=== PATIENT | male | born 1950 | race Caucasian/White ===

== ENCOUNTER 2017-10-22 09:41 | Inpatient (IN) | payer MEDICARE, SELFPAY ==
[2017-10-22] VITALS (40 sets, daily range): BP systolic 68–141; BP diastolic 51–115; PULSE 66–138; RESP 10–20; TEMP 36.8–37.1; O2SAT 94–98; BMI 27.6; BMI 26.8
--- NOTE | 2017-10-22 09:43 | NURSING ---
NO OLD EKGS
[2017-10-22] MEDS: 0.9% Normal Saline 1,000 ML 1000 ML IV (10:13)
[2017-10-22 10:14] LABS: Absolute Lymphocyte Count 0.92 X10^3/ul (0.83-4.51); Absolute Neutrophil Count 5.4 X10^3/uL (2.0-7.7); Basophil# 0.01 X10^3/uL; Basophil% 0.1 % (0-1); Eosinophil# 0.04 X10^3/uL; Eosinophils% 0.6 % (0-5); Hematocrit 44.4 % (40-54); Hemoglobin 14.7 g/dl (13.0-16.5); Lymphocyte # 0.92 X10^3/ul (4.0); Lymphocyte % 12.8 % (19-41); Mean Corp Hgb Conc 33.1 g/gl (32-36); Mean Corpuscular Hgb 32.5 pg (27.0-32.0); Mean Corpuscular Volume 98.2 fL (80-94); Mean Platelet Vol. 9.1 fl (6.2-12.0); Monocyte# 0.76 X10^3/uL; Monocyte% 10.6 % (0-10); Neutrophil # 5.41 X10^3/uL (2.7-7.7); Neutrophil % 75.6 % (47-70); POSITIVE COUNT NO; POSITIVE DIFFERENTIAL NO; POSITIVE MORPHOLOGY NO; Platelet Count 287 K/mm3 (150-450); RBC Distribution Width CV 12.1 % (11.6-14.6); RBC Distribution Width SD 42.9 fl (35.1-43.9); Red Blood Count 4.52 M/mm3 (4.6-6.2); White Blood Count 7.2 K/mm3 (4.4-11.0)
[2017-10-22] MEDS: dilTIAZem 25 MG/5 ML Vial IV BOLUS (10:14)
[2017-10-22] MEDS: Ondansetron 4 MG/2 ML Vial IV (10:14)
[2017-10-22] MEDS: Morphine 4 MG/ML Syringe 6 MG IV (10:14)
[2017-10-22 10:32] LABS: AST(SGOT) 22 U/L (15-37); Alanine Aminotransfer ALT/SGPT 23 U/L (16-61); Albumin, Serum 3.5 g/dL (3.2-5.0); Alkaline Phosphatase 116 U/L (45-117); Anion Gap 11 (5-15); BUN 12 mg/dL (7-18); BUN/Creat Ratio 13.2 RATIO (10-20); Bilirubin, Direct 0.07 mg/dL (0.00-0.30); Calcium,Total 9.2 mg/dL (8.5-10.1); Chloride 97 mmol/L (98-107); Creatinine, Serum 0.91 mg/dL (0.70-1.30); EST Glomerular Filtration Rate 88 mL/min (>60); Est Glom Filt Rate - Afr Amer 106 mL/min (>60); Estimated Creatinine Clearance 82.75 ml/min; Globulin 4.3 g/dL (2.2-4.2); Glucose 125 mg/dL (74-106); Lipase 38 U/L (73-393); Potassium 4.3 mmol/L (3.5-5.1); Protein, Total 7.8 g/dL (6.4-8.2); Sodium Level 137 mmol/L (136-145)
[2017-10-22 10:46] LABS: Mucous, Urine 0 SEEN /hpf (<or=2+); Squamous Epithelial Cells - UA 0 SEEN /hpf (0-5)
[2017-10-22 10:48] LABS: Color, Urine Yellow (Yellow); Glucose, Dipstick Normal (Normal); Ketone-Dipstick Negative (Negative); Leukocyte Esterase-Dipstick 25 /ul (Negative); Nitrite-Dipstick Negative (Negative); Occult Blood-Urine Negative /ul (Negative); Protein-Dipstick Negative (Negative); Urine Bilirubin Dipstick Negative (Negative); Urine Clarity Clear (Clear); Urine Urobilinogen Normal (Normal)
[2017-10-22 11:03] LABS: Red Blood Cells-Urine 0-5 SEEN /hpf (0-5); White Blood Cells 0-5 SEEN /hpf (0-5)
[2017-10-22 11:04] LABS: Bacteria RARE /hpf (None Seen)
[2017-10-22] MEDS: dilTIAZem 25 MG/5 ML Vial 20 MG IV BOLUS (12:01)
--- NOTE | 2017-10-22 12:04 | ED.VISSUMM ---
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 Denies prior abdominal surgery. He has had a prior lumbar fusion. He states he has had this abdominal pain in the periumbilical region. It was gradual in onset. He has had nausea but denies vomiting, diarrhea, fever, melena. No weight loss. No dysuria. Also states is an accelerated heart rate which she is unsure when it started. He denies chest pain or dyspnea. Physical Examination: Middle-aged male. Vital signs stable other than tachycardia 137. Pulse ox 94% on room air. Afebrile. H EENT exam unremarkable dry mucous members. Neck nontender no lymphadenopathy. Lungs clear to auscultation bilaterally. Heart tachycardic rate about 137. Abdomen is soft he has periumbilical tenderness. No rebound or guarding. Nondistended no peritoneal signs. No hernias or masses. No pulsatile mass. No specific right lower quadrant tenderness. Normal bowel sounds. Moving all 4 extremities. Neurovascularly intact. Calves nontender without edema or cords. Neurologically is awake and alert without focal motor deficits. Test Results: Chest x-ray showed chronic changes no acute process read both by myself and the radiologist. CT abdomen pelvis with IV contrast showed gallbladders and possibly small stones. Bilateral hydronephrosis but no obvious stones or obstruction seen in the left renal cyst. Read by the radiologist and reviewed by me. EKG shows atrial flutter heart rate of 134. CBC normal. White count 7. Hemoglobin 14. Chemistries normal. Gap 11. Creatinine 0.9. Liver enzymes normal. Lipase normal. UA normal. No signs of infection. Troponin normal. Emergency Department Course and Treatment: Patient treated with IV morphine and Zofran for his abdominal pain. A liter normal saline. And IV Cardizem ?2 for his atrial flutter with rapid ventricular rate. Treatment Plan: Multiple repeat exams is doing well. I have gone over all the test results with he and her male friend at bedside. Patient will be given a second dose of Cardizem. I very spoken to the hospitalist about admission. Disposition: Admit Impression: Recurrent atrial flutter with rapid ventricular rate Abdominal pain of uncertain etiology. Anticoagulated on Eliquis. This note was generated with [employer] dictation software. It may contain incorrect words, spelling, and punctuation that were not noted in review of the chart prior to signing ED Disposition - Plan for ED Patient: Chief Complaint: Abd Pain Referrals: Sayra Peterson MD [Primary Care Provider] -
--- NOTE | 2017-10-22 12:17 | PCM.HP.STD ---
Problem List (1) Palpitations Status: Acute (2) Abdominal pain Status: Acute History of Present Illness Date of Admission: 10/22/17 Chief Complaint: palpitations, abdominal pain The patient is a 67 year old M with a history of atrial fibrillation, hyperlipidemia and schizophrenia. He was admitted from his wrist home with a complaint of abdominal pain of one days duration and elevated heart rate also 1 days duration. Comments patient usually has generalized abdominal pain and is being followed up by GI doctor and was started on Zocor for it. However 1 day ago pain got worse. It was generalized, with no aggravating or relieving factors, cramping in nature, with associated nausea. He rated pain at about 8 out of 10. He denied any bloody emesis or bloody stool and denied abdominal pain being worsened by eating. His heart rate was checked in the longterm with a complaint of palpitations that he was noted to have elevated heart rate. Was never brought to the emergency room. He claims compliance with all his medications including his anticoagulation as he takes Eliquis and also his metoprolol to control his heart rate. In the ED, heart rate was in the 130s-140s, blood pressure was 117/74 and temperature was 98.2. Respiratory rate was 14 and he was saturating at 98% on 2 L of oxygen. CBC was unremarkable and CMP was also unremarkable. CT of the abdomen and pelvis with contrast showed increased linear markings of the lung base with areas of confluence worse on the right side and a 1.1 cm pleural-based nodular density in the right lower lobe which could be related to scarring and calcified granuloma in the anterior aspect of the right lower lobe. Decreased attenuation of liver consistent with steatosis mildly dilated central intrahepatic biliary ducts. Questionable sludge or tiny gallstones along the dependent portion of the gallbladder and multiple benign calcified melanomas of the spleen. CT also showed mild bilateral hydronephrosis and hydroureter without evidence of ureteral obstruction and left renal cyst. Her troponin was negative. He has been admitted to be managed for A. fib with RVR and abdominal pain. [] Past Medical History Allergies No Known Allergies Allergy (Verified 10/22/17 09:45) Home Medications: Ambulatory Orders Medication Instructions Recorded ALPRAZolam [Xanax] 0.25 mg PO QHS 10/22/17 Apixaban [Eliquis] 5 mg PO BID 10/22/17 Cholecalciferol (Vitamin D3) 1,000 unit PO DAILY 10/22/17 [Vitamin D3] Dicyclomine HCl 10 mg PO 4X/DAY 10/22/17 Duloxetine HCl 30 mg PO DAILY 10/22/17 Esomeprazole Magnesium 40 mg PO BID 10/22/17 Fentanyl 1 each TD QODAY MDD 75 10/22/17 Gabapentin [Neurontin] 300 mg PO BIDCM 10/22/17 Metoprolol Succinate 25 mg PO DAILY 10/22/17 Polyethylene Glycol 3350 [Miralax] 17 gm PO BID 10/22/17 Pravastatin [Pravachol] 40 mg PO DAILY 10/22/17 Risperidone [Risperdal] 0.25 mg PO BID 10/22/17 Sucralfate 1 gm PO BID 10/22/17 Surgical History: no surgical history Psychiatric History: Schizophrenia Lives: Prison Smoking Status: Never smoker Alcohol: None Drugs: None - *Family History Maternal History Items: Heart Disease Review of Systems Constitutional: Denies: Chills, Fever, Weight Change Eyes: Denies: Blurred vision HEENT: Denies: Head Aches, Sinus Congestion, Sinus Drainage Cardiovascular: Reports: Chest Pain - mild retrosternal chest pain,with no aggravating or relieving factors.. Denies: Light Headedness, Orthopnea, Palpitations Respiratory: Denies: Cough, Shortness of Breath, Shortness of breath at rest, Shortness of breath upon exertion, Sputum production Gastrointestinal: Reports: Abdominal Pain, Nausea. Denies: Constipation, Diarrhea, Dyspepsia, Hematemesis, Hematochezia, Melena, Vomiting Genitourinary: Denies: Dysuria Musculoskeletal: Denies: Joint Pain, Joint Tenderness Skin: Denies: Rash, Wounds Neurological: Denies: Numbness, Tingling, Focal weakness Psychiatric: Denies: Anxiety, Depression, Homicidal Ideations, Suicidal Ideations Hematologic/ Lymphatic: Denies: Easy Bruising, Easy Bleeding VTE Information - Inpt Only VTE Present on Admission: No VTE Mechan Device Prophylaxis: None VTE Pharm Prophylaxis ordered?: Yes Patient Problems: Active and Suspected Problems Palpitations (Acute) Abdominal pain (Acute) Atrial flutter (Acute) - Physical Exam General: Alert, Oriented x3, Cooperative, No apparent distress HEENT: Atraumatic, PERRLA, EOMI, Normocephalic Oral: Dry Mucosa Neck: Supple, No JVD, Negative Carotid Bruits Lungs: Clear to auscultation, Normal air movement, No rhonchi, No wheeze, No rales Cardiovascular: - - irregularly irregular heart rate, tachycardic Abdomen: Bowel Sounds Present, Soft, - - generalised tenderness, mainly in periumbilical region. no guarding or rebound tenderness Extremities: No clubbing, No cyanosis, No edema, Capillary Refill Less than 3 Seconds Skin: No rashes, No breakdown Musculoskeletal: No Tenderness to Palpation of Joints or Extremities Lymphatic: No Cervical, Supraclavicular, or Inguinal Adenopathy Neurological: Cranial nerves II-XII grossly intact, Motor Exam 5/5 strength throughout Psych/Mental Status: Normal Affect, Appropriate, Alert and oriented to time, place, person, mood and affect Vital Signs Temp Pulse Resp BP Pulse Ox 98.2 F 130 H 14 141/103 H 94 10/22/17 09:42 10/22/17 12:00 10/22/17 12:00 10/22/17 12:00 10/22/17 12:00 Oxygen Delivery Method Room Air Weight: 198 lb Body Mass Index (BMI) 27.6 Laboratory Tests Past 24 Hrs 10/22/17 10/22/17 10/22/17 10:06 10:06 10:35 WBC 7.2 RBC 4.52 L Hgb 14.7 Hct 44.4 MCV 98.2 H MCH 32.5 H MCHC 33.1 RDW 12.1 RDW Differential 42.9 Plt Count 287 MPV 9.1 Immature Gran % (Auto) 0.300 Neut % (Auto) 75.6 H Lymph % (Auto) 12.8 L Emery % (Auto) 10.6 H Eos % (Auto) 0.6 Baso % (Auto) 0.1 Absolute Neuts (auto) 5.4 Absolute Lymphs (auto) 0.92 Total Counted Not Reportable Sodium 137 Potassium 4.3 Chloride 97 L Carbon Dioxide 29.0 Anion Gap 11 BUN 12 Creatinine 0.91 Estim Creat Clear Calc 82.75 Est GFR (MDRD) Af Amer 106 Est GFR (MDRD) Non-Af 88 BUN/Creatinine Ratio 13.2 Glucose 125 H Calcium 9.2 Total Bilirubin 0.20 Direct Bilirubin 0.07 AST 22 ALT 23 Alkaline Phosphatase 116 Troponin I < 0.015 Total Protein 7.8 Albumin 3.5 Globulin 4.3 H Lipase 38 L Urine Color Yellow Urine Clarity Clear Urine pH 7.0 Ur Specific [place] 1.010 Urine Protein Negative Urine Glucose (UA) Normal Urine Ketones Negative Urine Occult Blood Negative Urine Nitrite Negative Urine Bilirubin Negative Urine Urobilinogen Normal Ur Leukocyte Esterase 25 H Urine RBC 0-5 SEEN Urine WBC 0-5 SEEN Ur Squamous Epith Cells 0 SEEN Urine Bacteria RARE Urine Mucus 0 SEEN Diagnostic Data Abdomen/Pelvis CT 10/22/17 09:56 IMPRESSION: Findings suggestive of atelectasis and/or scarring at the lung bases. Follow-up is recommended. Mild degree of the dilated intrahepatic biliary ducts and possible sludge or tiny gallstones in the gallbladder lumen. Mild bilateral hydronephrosis and hydroureter without evidence of ureteral obstruction. Left renal cyst. Electronically Signed: Asher Denton MD at 11:27 EDT Tel [phone], Service support , Chest X-Ray 10/22/17 10:15 IMPRESSION: Mild increased markings in the peripheral aspect of the right upper lobe and left lower lobe suggestive of linear atelectasis and/or scarring. Electronically Signed: Asher Denton MD at 10:20 EDT Tel [phone], Service support , Assessment/Plan All Active Problems Palpitations (Acute) Abdominal pain (Acute) Atrial flutter (Acute) 67-year-old male with a history of atrial fibrillation presenting with a one-day history of worsening abdominal pain and elevated heart rate. 1. Afib with RVR Heart rate has been in the 120s and up to 140s. Received 2 doses of IV Cardizem in the ED with a heart rate persists in the 120s-130s. claims compliance with this anticoagulants and metoprolol. Will admit to PCU with telemetry EKG showed atrial flutter with RVR Start IV Cardizem drip. Hold Eliquis and start IV heparin drip. he received his eliquis dose this morning, so he is adequately anticoagulated for now. Hold metoprolol as patient of Cardizem drip. Get 2D echo Cardiology consult. 2. Generalized abdominal pain due to possible mesenteric ischemia States he has been followed up by a GI doctor in [facility]. Was recently put on sulcrafate but abdominal pain has persisted. Abdominal pain worsened 1 day ago. On examination abdomen is soft patient complains of severe generalized abdominal tenderness. CT abdomen showed mildly dilated intrahepatic biliary ducts and possible sludge of tiny gallstones in the gallbladder lumen and bilateral mild hydronephrosis and hydroureter with no evidence of ureteral obstruction and left renal cyst. will get urgent lactic acid to assess for possible ischemia- lactic acid came back elevated at 3.6. Will give IVF and trend lactic acid. If it trends upwards, will get general surgery consult. gallbladder USG obtained to assess for cholecystitis general surgery consult placed with Dr Paredes. 3. Lactic acidosis: lactic acid is 3.6. May be due to mesenteric ischemia or some other intra-abdominal pathology. Will start IVF NS @ 100cc/hr and monitor. 4. Hyperlipidemia: on statin, will continue 5. Schizophrenia: continue risperdal 6. DVT prophylaxis: heparin drip 7. GI prophylaxis: PPI Code status: DNRCCA Brother is his healthcare power of assistant attorney general. Patient counseled extensively about different types of CODE STATUS. Patient counseled about differences between full code, DNR CCA and DNR CCA. Patient elected to be full code after discussion in the ED. However, there is documentation from [facility] that he is DNRCCA. I again explained to patient the differences between full code and DNRCC. Patient now prefers to go with DNRCCA as that is what is on his record. Says he will discuss with his brother about any change they want to make, as he admits he is quite confused about it all. Total xsev-dl-whps time 20 minutes. This note was generated with [employer] software. It may contain incorrect words, spelling, and punctuation that were not noted in checking the note before signing. Code Visit Inpatient E&M: 67417 Init Hosp L3 Procedures: 64534 Advncd Care Plan 30 Min
--- NOTE | 2017-10-22 12:28 | CM.ED ---
DAVIDE Initial Assessment: Patient states he is a resident at [facility] and would like to return there upon discharge. Social work and case management will continue to follow for effective discharge planning.
--- NOTE | 2017-10-22 13:04 | NURSING ---
105 MANJEET MENDEZ WITH RVR
--- NOTE | 2017-10-22 14:21 | CASEMGMT ---
Patient is from [facility] residential. SW will communicate with [facility] regarding patient's admission and when he is ready for d/c. Patient's brother, Som is his POA per snf paperwork ([phone]). Also included in the snf paperwork is an order for DNRCC. Rafaela JJ MSW
[2017-10-22] MEDS: 0.9% NaCl Peripheral Flush Adult/Peds IV ×3 (15:02→21:26)
[2017-10-22] MEDS: dilTIAZem 25 MG/5 ML Vial 10 MG IV BOLUS (15:06)
[2017-10-22] MEDS: Dicyclomine 10 MG Capsule PO ×2 (15:10→21:37)
[2017-10-22] MEDS: Gabapentin 300 MG Capsule PO (15:12)
--- NOTE | 2017-10-22 15:43 | PCM.CONS.C ---
Problem List (1) Atrial flutter Status: Acute (2) Palpitations Status: Acute (3) Abdominal pain Status: Acute Reason for Consult Date of Consultation: 10/22/17 Reason for Consultation: Atrial flutter with RVR, abdominal pain, positive gallstones, chest pressure History of Present Illness: The patient is a 67 year old M, with a history of schizophrenia, atrial fibrillation on chronic Eliquis therapy, lives in assisted living at [facility] here locally for the past 2 years. Patient was diagnosed with atrial flutter about 1 year ago and had DC cardioversion and [place] which was initially successful. No further cardioversion was performed. The patient walks with a walker but has limited mobility. He is a nondiabetic, has had no previous CVA and is a non-smoker. He denies any coronary disease or stress test in the past. He thinks he may have had a catheterization about 3 years ago but he does not recall what the results were. The patient was residing in his normal state at the [facility] when he developed chest pressure several times over the last day or so. He describes this is a strong pain with associated lightheadedness and dizziness over the last day. Patient presented to [facility] ER where initially was found to be tachycardic and EKG detected atrial flutter with rapid ventricular response, no acute changes. He underwent a CT scan in the ER which demonstrated atelectasis and/or scarring at the lung bases, mild degree of the dilated intrahepatic biliary ducts and possible sludge or tiny gallstones in the gallbladder lumen. Mild bilateral hydronephrosis and hydroureter without evidence of ureteral obstruction. Left renal cyst. Patient was placed on a Cardizem drip and admitted to the PCU. He denies any chest pain or anginal symptoms. His heart rate is not quite controlled and is beating in the 120s. He does report compliance with his medications including his metoprolol and Eliquis. Echocardiogram is pending. First troponin is negative. Patient is currently laying in bed, no acute distress, but does have abdominal guarding and tenderness in the right upper quadrant. He also has his knees bent, to avoid antagonizing his abdominal pain. [] Past Medical History Allergies/Adverse Reactions: Allergies No Known Allergies Allergy (Verified 10/22/17 09:45) Home Medications: Ambulatory Orders Medication Instructions Recorded ALPRAZolam [Xanax] 0.25 mg PO QHS 10/22/17 Apixaban [Eliquis] 5 mg PO BID 10/22/17 Cholecalciferol (Vitamin D3) 1,000 unit PO DAILY 10/22/17 [Vitamin D3] Dicyclomine HCl 10 mg PO 4X/DAY 10/22/17 Duloxetine HCl 30 mg PO DAILY 10/22/17 Esomeprazole Magnesium 40 mg PO BID 10/22/17 Fentanyl 1 each TD QODAY MDD 75 10/22/17 Gabapentin [Neurontin] 300 mg PO BIDCM 10/22/17 Metoprolol Succinate 25 mg PO DAILY 10/22/17 Polyethylene Glycol 3350 [Miralax] 17 gm PO BID 10/22/17 Pravastatin [Pravachol] 40 mg PO DAILY 10/22/17 Risperidone [Risperdal] 0.25 mg PO BID 10/22/17 Sucralfate 1 gm PO BID 10/22/17 Surgical History: no surgical history Psychiatric History: Schizophrenia - *Family History Maternal History Items: Heart Disease Lives: [facility] Smoking Status: Never smoker Alcohol: None Drugs: None Review of Systems - Review of Systems General: Denies: Fever, Night Sweats, Fatigue Cardiovascular: Reports: Chest Discomfort at Rest, Palpitations, Lightheadedness, Dizziness. Denies: Chest Discomfort, Shortness of Breath, Orthopnea, PND, Peripheral Edema, Near Syncope, Syncope Respiratory: Denies: Cough, Sputum Production, Hemoptysis Gastrointestinal: Reports: Epigastric Discomfort, Abdominal Discomfort, Nausea. Denies: Hematemesis, Hematochezia, Melena Genitourinary: Denies: Dysuria, Hematuria Skin: Denies: Rash Subjectve: Patient laying in bed, no acute distress. Objective: Vital Signs Temp Pulse Resp BP Pulse Ox 98.7 F 136 H 16 127/87 H 94 10/22/17 13:56 10/22/17 15:30 10/22/17 13:56 10/22/17 15:30 10/22/17 13:56 Oxygen Delivery Method Room Air Weight: 192 lb 7.417 oz Body Mass Index (BMI) 26.8 General: Awake, Alert, Oriented x 3 HEENT: PERRL, EOMI, Sclera Non Icteric Neck: Supple, Good ROM, No Lymph Node Enlargement Lungs: Clear to auscultation Cardiovascular: Irregular Rhythm, Normal S1, Normal S2, No Murmurs, No Rubs, No Gallops Vascular: No Carotid Bruits, Normal Femoral Pulses, Normal Radial Pulses, Normal Dorsalis Pedal Pulse, Normal Posterior Tibial Pulses Abdomen: Bowel Sounds Present, Soft, No HSM, No Organomegaly, Guarding, RUQ Tenderness Extremities: No Cyanosis, No Clubbing, No edema Neurological: No Focal Motor or Sensory Deficit 10/22/17 14:02: Lactic Acid Cancelled Rhythm: EKG: As above ECHO: Pending Stress Test: Pending Cardiac Cath: PCI: CT Surgery: Holter monitor: EPS: PPM: CXR: Chest CT Scan: Assessment/Plan 1. Atrial flutter with rapid ventricular response: The patient presents with recurrent atrial flutter/fibrillation with rapid ventricular response unresponsive to IV Cardizem therapy. He is only on 5 mg/h and recommend an additional 10 mg IV bolus followed by increasing to 10 mg/h until his heart rate comes under control. In addition he appears to have significant abdominal pain with guarding, right upper quadrant tenderness, and bending of the knees to prevent abdominal stretching. I recommended the patient have an urgent gallbladder ultrasound to determine if he has significant cholecystitis. If this is the case he may require urgent corrective measures vis-?-vis surgery. To better evaluate his cardiac risk stratification recommend a 2D echo with Doppler, and rule him out for myocardial infarction. Should he require abdominal surgery, we will hopefully be able to postpone it long enough to get his Eliquis out of his system. He will require bridging with full dose subcu Lovenox at 1 mg/kg subcu twice daily, holding on the day of his surgery and per the surgeon postoperatively. In addition, assuming his troponins are negative, he will undergo a non-walking nuclear stress test tomorrow morning. If this is grossly abnormal for ischemia, he may require diagnostic coronary angiogram prior to any procedure. If the patient's condition deteriorates, I have a low threshold for urgent synchronized DC cardioversion with 200 J biphasic shock. In addition recommend checking his TSH and T4 to further evaluate his atrial fibrillation/atrial flutter. 2. I would have a low threshold to consult general surgery for possible cholecystitis. Currently his white count is not elevated suggesting he does not have acute cholecystitis although he does have significant abdominal tenderness in the right upper quadrant. 3. Thank you very much for the opportunity to participate in the cardiac care of your patient. Consultation time took place between 3 PM and 3:50 PM. Code Visit Inpatient E&M: 77655 Init Hosp L2
[2017-10-22 16:01] LABS: Lactic Acid 3.6 mmol/L (0.4-2.0)
[2017-10-22 16:01] LABS: Thyroid Stim Hormone (TSH) 2.99 uIU/mL (0.358-3.74)
[2017-10-22] MEDS: Morphine 2 MG/ML Syringe IV ×2 (17:30→21:32)
--- NOTE | 2017-10-22 17:57 | PCM.CONS.GEN ---
Problem List (1) Abdominal pain Status: Acute Qualifiers: Abdominal location: generalized Qualified Code(s): R10.84 - Generalized abdominal pain Reason for Consult Date of Consultation: 10/22/17 History of Present Illness: The patient is a 67 year old M who presents with atrial flutter with rapid ventricular rate. He also has a 2 day history of abdominal pain. I have been asked to see this patient in consultation by regarding his abdominal pain and a electronic copy my surgical consult will be returned to her. The patient states that for years he has had intermittent abdominal pain problems. He states that the pain usually is not this severe. He does note that previously he was hospitalized at [facility]. I was able to review records of July 16 - July 18, 2017. That time he also had atrial fibrillation with rapid ventricular response. He had a MICHELLE and cardioversion. That time he was complaining of abdominal pain as well. Gastroenterology was consulted felt that he was constipated recommended magnesium citrate. That assist with bowel function. The patient continued to complain of discomfort but was discharged on a bowel regimen. On today's visit his white count is normal at 7.2 with a hemoglobin 14.7 hematocrit 44.4 platelet count 287,000 with a 75% neutrophils. BUN is normal at 12 and creatinine normal at 0.91. Liver function tests are all normal. Lactic acid level was 3.6. Urinalysis was not remarkable. CT scan suggested atelectasis. Possible mild degree of dilated intrahepatic biliary ducts possible sludge or tiny stones. A gallbladder ultrasound is still pending. When questioned the patient simply points to his mid periumbilical abdomen states that he has a steady ache in that area. His last bowel movement was earlier today and he states unremarkable. He did not notice any bright red blood or melena. There was no diarrhea or particular constipation. On my review of his CT scan the patient has a significant amount of stool within the rectosigmoid. The rest of the bowel is unremarkable. I am not seeing significant changes in the right upper quadrant Past Medical History Allergies No Known Allergies Allergy (Verified 10/22/17 09:45) Home Medications: Ambulatory Orders Medication Instructions Recorded ALPRAZolam [Xanax] 0.25 mg PO QHS 10/22/17 Apixaban [Eliquis] 5 mg PO BID 10/22/17 Cholecalciferol (Vitamin D3) 1,000 unit PO DAILY 10/22/17 [Vitamin D3] Dicyclomine HCl 10 mg PO 4X/DAY 10/22/17 Duloxetine HCl 30 mg PO DAILY 10/22/17 Esomeprazole Magnesium 40 mg PO BID 10/22/17 Fentanyl 1 each TD QODAY MDD 75 10/22/17 Gabapentin [Neurontin] 300 mg PO BIDCM 10/22/17 Metoprolol Succinate 25 mg PO DAILY 10/22/17 Polyethylene Glycol 3350 [Miralax] 17 gm PO BID 10/22/17 Pravastatin [Pravachol] 40 mg PO DAILY 10/22/17 Risperidone [Risperdal] 0.25 mg PO BID 10/22/17 Sucralfate 1 gm PO BID 10/22/17 Surgical History: no surgical history Psychiatric History: Schizophrenia Lives: Prison Smoking Status: Never smoker Alcohol: None Drugs: None - *Family History Maternal History Items: Heart Disease Review of Systems Constitutional: Denies: Anorexia Eyes: Denies: Blurred vision Cardiovascular: Reports: Chest Pain Respiratory: Denies: Cough Gastrointestinal: Reports: Abdominal Pain, Nausea Genitourinary: Denies: Dysuria Musculoskeletal: Denies: Leg Pain Skin: Denies: Jaundice Endocrine: Denies: Change in Body Habitus Patient Problems: Active and Suspected Problems Palpitations (Acute) Abdominal pain (Acute) Atrial flutter (Acute) - Physical Exam General: Alert, Oriented x3, Cooperative, No apparent distress HEENT: Atraumatic Oral: Moist Mucosa Neck: Supple, No JVD, Negative Carotid Bruits Lungs: Clear to auscultation Cardiovascular: Tachycardic Abdomen: Soft, - - Hypoactive bowel sounds. Mild diffuse tenderness. No focal mass. Softly distended Extremities: - - Mild bilateral extremity nonpitting edema Skin: No rashes Neurological: - - Patient is alert aware of his situation place and is able to respond to questions Vital Signs Temp Pulse Resp BP Pulse Ox 98.7 F 133 H 16 116/82 H 94 10/22/17 16:00 10/22/17 16:30 10/22/17 16:00 10/22/17 16:30 10/22/17 16:00 Oxygen Delivery Method Room Air Weight: 192 lb 7.417 oz Body Mass Index (BMI) 26.8 Laboratory Tests Past 24 Hrs 10/22/17 10/22/17 14:02 15:25 Lactic Acid Cancelled 3.6 H Assessment/Plan All Active Problems Palpitations (Acute) Abdominal pain (Acute) Atrial flutter (Acute) 67-year-old gentleman with atrial flutter and rapid ventricular response. He has recurrence of his abdominal pain. This would seem to be a very similar presentation to when [place] was [place]. I do not believe that he has an acute surgical abdomen at this time. I have a lower level of suspicion that this is symptomatic biliary tract disease. I concur with obtaining a gallbladder ultrasound. Lactic acid level repeat is pending. Pending his progress would consider simple saline enemas to evacuate the rectosigmoid. It appears that he spontaneously resolved and may without requiring aggressive intervention and I suspect that this will likely be the same on this occasion. I appreciate the opportunity of assisting with his surgical care and will follow with you. Justin Paredes M.D., F.A.C.S.
[2017-10-22] MEDS: Metoprolol Tartrate 5 MG/5 ML Vial IV (19:45)
[2017-10-22] MEDS: Metoprolol Tartrate 25 MG Tablet PO (19:45)
[2017-10-22] MEDS: 0.9% Normal Saline 1,000 ML 100 ML IV (19:50)
[2017-10-22 21:00] LABS: International Normalized Ratio 1.2; Prothrombin Time (Protime)PT. 14.7 SECONDS (11.7-14.9)
[2017-10-22 21:01] LABS: Partial Thromboplast Time 33.9 Seconds (24.1-36.2)
[2017-10-22] MEDS: Heparin Injection (Vial) 5,000 UNIT/ML VIAL IV (21:26)
[2017-10-22] MEDS: RisperiDONE 0.25 MG Tablet PO (21:37)
[2017-10-22] MEDS: Pravastatin 40 MG Tablet PO (21:37)
[2017-10-22] MEDS: ALPRAZolam 0.25 MG Tablet PO (21:37)
[2017-10-22 23:00] LABS: Lactic Acid 2.6 mmol/L (0.4-2.0)
--- NOTE | 2017-10-22 23:00 | NURSING ---
Pts primary rn aware of lactic of 2.6 at this time.
[2017-10-23] VITALS (46 sets, daily range): BP systolic 71–128; BP diastolic 48–102; PULSE 36–122; RESP 8–21; TEMP 36.3–36.7; O2SAT 92–96
[2017-10-23 00:35] LABS: Reflex Lactate? Y
[2017-10-23 01:40] LABS: Lactic Acid 1.7 mmol/L (0.4-2.0)
[2017-10-23 03:57] LABS: Absolute Lymphocyte Count 1.58 X10^3/ul (0.83-4.51); Absolute Neutrophil Count 5.2 X10^3/uL (2.0-7.7); Basophil# 0.01 X10^3/uL; Basophil% 0.1 % (0-1); Eosinophil# 0.05 X10^3/uL; Eosinophils% 0.6 % (0-5); Hematocrit 38.9 % (40-54); Hemoglobin 13.1 g/dl (13.0-16.5); Lymphocyte # 1.58 X10^3/ul (4.0); Lymphocyte % 19.9 % (19-41); Mean Corp Hgb Conc 33.7 g/gl (32-36); Mean Corpuscular Hgb 33.5 pg (27.0-32.0); Mean Corpuscular Volume 99.5 fL (80-94); Mean Platelet Vol. 9.2 fl (6.2-12.0); Monocyte# 1.09 X10^3/uL; Monocyte% 13.7 % (0-10); Neutrophil # 5.16 X10^3/uL (2.7-7.7); Neutrophil % 65.1 % (47-70); Platelet Count 253 K/mm3 (150-450); RBC Distribution Width CV 11.9 % (11.6-14.6); RBC Distribution Width SD 42.8 fl (35.1-43.9); Red Blood Count 3.91 M/mm3 (4.6-6.2); White Blood Count 7.9 K/mm3 (4.4-11.0)
[2017-10-23 04:10] LABS: POSITIVE COUNT NO; POSITIVE DIFFERENTIAL NO; POSITIVE MORPHOLOGY NO
[2017-10-23 04:14] LABS: International Normalized Ratio 1.2; Prothrombin Time (Protime)PT. 15.3 SECONDS (11.7-14.9)
[2017-10-23 04:15] LABS: Anion Gap 9 (5-15); BUN 13 mg/dL (7-18); BUN/Creat Ratio 16.1 RATIO (10-20); Calcium,Total 8.1 mg/dL (8.5-10.1); Chloride 100 mmol/L (98-107); Creatinine, Serum 0.81 mg/dL (0.70-1.30); EST Glomerular Filtration Rate 101 mL/min (>60); Est Glom Filt Rate - Afr Amer 122 mL/min (>60); Estimated Creatinine Clearance 92.96 ml/min; Glucose 105 mg/dL (74-106); Potassium 4.2 mmol/L (3.5-5.1); Sodium Level 135 mmol/L (136-145)
[2017-10-23 04:47] LABS: Partial Thromboplast Time 147.4 Seconds (24.1-36.2)
--- NOTE | 2017-10-23 05:29 | PN.SURG_ITS ---
Patient Problems: Active and Suspected Problems Palpitations (Acute) Abdominal pain (Acute) Atrial flutter (Acute) Subjective: HR resumed nl but relative hypotension Still notes abd pain - Physical Exam Abdomen: Soft, Hypoactive Bowel Sounds, Distended, Tender Vital Signs Temp Pulse Resp BP Pulse Ox 97.5 F L 61 8 L 83/66 L 93 10/23/17 04:00 10/23/17 05:05 10/23/17 05:05 10/23/17 05:08 10/23/17 05:05 Oxygen Flow Rate (L/min) 2 Oxygen Delivery Method Nasal Cannula Weight: 192 lb 7.417 oz Body Mass Index (BMI) 26.8 Intake and Output for Last 24 Hours 10/21/17 10/22/17 10/23/17 23:59 23:59 23:59 Intake Total 1327.5 / 1327.5 Output Total 975 / 975 Balance 352.5 / 352.5 Laboratory Tests Past 24 Hrs 10/22/17 10/22/17 10/22/17 14:02 15:25 20:16 WBC RBC Hgb Hct MCV MCH MCHC RDW RDW Differential Plt Count MPV Immature Gran % (Auto) Neut % (Auto) Lymph % (Auto) [place] % (Auto) Eos % (Auto) Baso % (Auto) Absolute Neuts (auto) Absolute Lymphs (auto) Total Counted PT 14.7 INR 1.2 APTT 33.9 Sodium Potassium Chloride Carbon Dioxide Anion Gap BUN Creatinine Estim Creat Clear Calc Est GFR (MDRD) Af Amer Est GFR (MDRD) Non-Af BUN/Creatinine Ratio Glucose Lactic Acid Cancelled 3.6 H Calcium 10/22/17 10/23/17 10/23/17 20:16 01:09 03:42 WBC 7.9 RBC 3.91 L Hgb 13.1 Hct 38.9 L MCV 99.5 H MCH 33.5 H MCHC 33.7 RDW 11.9 RDW Differential 42.8 Plt Count 253 MPV 9.2 Immature Gran % (Auto) 0.600 Neut % (Auto) 65.1 Lymph % (Auto) 19.9 [place] % (Auto) 13.7 H Eos % (Auto) 0.6 Baso % (Auto) 0.1 Absolute Neuts (auto) 5.2 Absolute Lymphs (auto) 1.58 Total Counted Not Reportable PT INR APTT Sodium Potassium Chloride Carbon Dioxide Anion Gap BUN Creatinine Estim Creat Clear Calc Est GFR (MDRD) Af Amer Est GFR (MDRD) Non-Af BUN/Creatinine Ratio Glucose Lactic Acid 2.6 H 1.7 Calcium 10/23/17 10/23/17 10/23/17 03:42 03:42 03:42 WBC RBC Hgb Hct MCV MCH MCHC RDW RDW Differential Plt Count MPV Immature Gran % (Auto) Neut % (Auto) Lymph % (Auto) [place] % (Auto) Eos % (Auto) Baso % (Auto) Absolute Neuts (auto) Absolute Lymphs (auto) Total Counted PT 15.3 H INR 1.2 APTT 147.4 H* Sodium 135 L Potassium 4.2 Chloride 100 Carbon Dioxide 26.0 Anion Gap 9 BUN 13 Creatinine 0.81 Estim Creat Clear Calc 92.96 Est GFR (MDRD) Af Amer 122 Est GFR (MDRD) Non-Af 101 BUN/Creatinine Ratio 16.1 Glucose 105 Lactic Acid Calcium 8.1 L Medical Necessity - Tobacco Use Smoking Status: Never smoker Assessment/Plan All Active Problems Palpitations (Acute) Abdominal pain (Acute) Atrial flutter (Acute) Lactic acidosis has resolved Probable rate related diminished intestinal blood flow with relative ileus History suggest chronic abd pain issues Pt needs to mobilize. Avoid narcotics. Possible future outpt GI workup but pt is already edematous in his upper extremities from his current treatment. Possible future output lap GB but all of this would be pending pt recovery I am not anticipating any surgical procedures this admission
[2017-10-23] MEDS: Dicyclomine 10 MG Capsule PO ×4 (06:44→21:10)
[2017-10-23] MEDS: 0.9% Normal Saline 1,000 ML 100 ML IV (06:44)
--- NOTE | 2017-10-23 08:43 | CASEMGMT ---
Faxed updates to Lesley Moralez. Rafaela JJ BROADCAST JOURNALIST
[2017-10-23] MEDS: Ketorolac 30 MG/ML Syringe IV (09:32)
[2017-10-23] MEDS: 0.9% NaCl Peripheral Flush Adult/Peds IV (09:32)
--- NOTE | 2017-10-23 10:00 | PCM.PN.HOSP ---
Patient Problems: Active and Suspected Problems Palpitations (Acute) Abdominal pain (Acute) Atrial flutter (Acute) Subjective: Patient seen and examined. Was complaining of abdominal pain and states that his pain medication was wearing off. He remained tachycardic overnight with heart rate went up to the 170s and so amiodarone drip was added onto Cardizem drip per cardiology. Patient was noted to be mildly hypotensive this morning and bradycardic with heart rate fluctuating between the 40s in the 60s. He denied any lightheadedness or dizziness. Cardizem drip and amiodarone drip on hold at time of review and he remained on heparin drip. He was reviewed by general surgery yesterday who thought his symptoms were likely due to constipation. Patient had had an extensive workup admitted in hospital by GI for similar pain a few months ago. He denies any fever or chills, any cough or chest pain, any lightheadedness or dizziness, any nausea vomiting or diarrhea. 12 point review of systems otherwise negative. Labs and vitals reviewed. He is scheduled for stress test this morning. Vitals/I&O's: Vital Signs Temp Pulse Resp BP Pulse Ox 97.4 F L 93 17 116/70 92 10/23/17 06:00 10/23/17 09:00 10/23/17 09:00 10/23/17 09:00 10/23/17 09:00 Oxygen Flow Rate (L/min) 1 Oxygen Delivery Method Nasal Cannula Weight: 192 lb 7.417 oz Body Mass Index (BMI) 26.8 Intake and Output for Last 24 Hours 10/21/17 10/22/17 10/23/17 23:59 23:59 23:59 Intake Total 1327.5 / 1327.5 798.6 / 798.6 Output Total 975 / 975 Balance 352.5 / 352.5 798.6 / 798.6 General: Alert, Oriented x3, Cooperative, - - mild distress from pain HEENT: Atraumatic, PERRLA, EOMI, Normocephalic Oral: Moist Mucosa Neck: Supple, No JVD, Negative Carotid Bruits Lungs: Clear to auscultation, Normal air movement, No rhonchi, No wheeze, No rales Cardiovascular: Bradycardic, - - irregularly irregular Abdomen: Bowel Sounds Present, Soft, - - mild generalised tenderness, no guarding or rebound tendnerness Extremities: No clubbing, No cyanosis, Capillary Refill Less than 3 Seconds, - - mild 1+ pitting bipedal edema Skin: No rashes, No breakdown Musculoskeletal: No Tenderness to Palpation of Joints or Extremities Lymphatic: No Cervical, Supraclavicular, or Inguinal Adenopathy Neurological: Cranial nerves II-XII grossly intact, Motor Exam 5/5 strength throughout Psych/Mental Status: Normal Affect, Appropriate, Alert and oriented to time, place, person, mood and affect Laboratory Results 10/22/17 14:02: Lactic Acid Cancelled 10/22/17 15:25: Lactic Acid 3.6 H 10/22/17 20:16: PT 14.7, INR 1.2, APTT 33.9 10/22/17 20:16: Lactic Acid 2.6 H 10/23/17 01:09: Lactic Acid 1.7 10/23/17 03:42: WBC 7.9, RBC 3.91 L, Hgb 13.1, Hct 38.9 L, MCV 99.5 H, MCH 33.5 H, MCHC 33.7, RDW 11.9, RDW Differential 42.8, Plt Count 253, MPV 9.2, Immature Gran % (Auto) 0.600, Neut % (Auto) 65.1, Lymph % (Auto) 19.9, [place] % (Auto) 13.7 H, Eos % (Auto) 0.6, Baso % (Auto) 0.1, Absolute Neuts (auto) 5.2, Absolute Lymphs (auto) 1.58, Total Counted Not Reportable 10/23/17 03:42: Sodium 135 L, Potassium 4.2, Chloride 100, Carbon Dioxide 26.0, Anion Gap 9, BUN 13, Creatinine 0.81, Estim Creat Clear Calc 92.96, Est GFR (MDRD) Af Amer 122, Est GFR (MDRD) Non-Af 101, BUN/Creatinine Ratio 16.1, Glucose 105, Calcium 8.1 L 10/23/17 03:42: APTT 147.4 H* 10/23/17 03:42: PT 15.3 H, INR 1.2 Diagnostic Data Abdomen/Pelvis CT 10/22/17 09:56 IMPRESSION: Findings suggestive of atelectasis and/or scarring at the lung bases. Follow-up is recommended. Mild degree of the dilated intrahepatic biliary ducts and possible sludge or tiny gallstones in the gallbladder lumen. Mild bilateral hydronephrosis and hydroureter without evidence of ureteral obstruction. Left renal cyst. Electronically Signed: Asher Denton MD at 11:27 EDT Tel [phone], Service support , Chest X-Ray 10/22/17 10:15 IMPRESSION: Mild increased markings in the peripheral aspect of the right upper lobe and left lower lobe suggestive of linear atelectasis and/or scarring. Electronically Signed: Asher Denton MD at 10:20 EDT Tel [phone], Service support , Gallbladder Ultrasound 10/22/17 14:41 IMPRESSION: Enlarged fatty liver. Focal gallbladder sludge. No biliary dilatation. Electronically Signed: Jaydon Reid DO at 18:48 EDT Tel [phone], Service support , Current Medications Alprazolam (Xanax) 0.25 mg PO QHS [facility] Last Admin: 10/22/17 21:37 Dose: 0.25 mg Dicyclomine HCl (Bentyl) 10 mg PO ACHS [facility] Last Admin: 10/23/17 06:44 Dose: 10 mg Duloxetine HCl (Cymbalta) 30 mg PO DAILY [facility] Fentanyl (Duragesic Patch) 75 mcg TRANSDERM. QODAY [facility] Last Admin: 10/23/17 09:32 Dose: Not Given Gabapentin (Neurontin) 300 mg PO BIDCM [facility] Last Admin: 10/22/17 15:12 Dose: 300 mg Heparin Sodium (Porcine) (Heparin Na) 0 unit IV UD PRN PRN Reason: Protocol Last Admin: 10/22/17 21:26 Dose: 6,000 unit Diltiazem HCl 125 mg/ Dextrose 125 mls @ 5 mls/hr IV .Q25H [facility] PRN Reason: 5 MG/HR Last Admin: 10/22/17 22:48 Dose: 5 mls/hr Pantoprazole Sodium 40 mg/ (Sodium Chloride) 110 mls @ 330 mls/hr IV Q24 [facility] Last Admin: 10/22/17 15:01 Dose: 330 mls/hr Sodium Chloride () 1,000 mls @ 100 mls/hr IV .Q10H [facility] Stop: 10/23/17 12:14 Last Admin: 10/23/17 06:44 Dose: 100 mls/hr Heparin Sodium/Sodium Chloride () 25,000 unit in 250 mls @ 12 mls/hr IV .[id number] [facility]; As Directed PRN Reason: Protocol Last Admin: 10/22/17 21:28 Dose: 12 mls/hr Amiodarone HCl/Dextrose (Nexterone 360 Mg/200 Ml Bag) 360 mg in 200 mls @ 16.667 mls/hr CONT INF .Q12H [facility] PRN Reason: 0.5 MG/MIN Last Admin: 10/23/17 04:57 Dose: Not Given Magnesium Hydroxide (Milk Of Magnesia) 30 ml PO DAILY PRN PRN PRN Reason: Constipation Metoprolol Tartrate (Lopressor (Beta José Miguel)) 25 mg PO BID [facility] Last Admin: 10/22/17 19:45 Dose: 25 mg Morphine Sulfate () 2 mg IV Q4H PRN PRN PRN Reason: SEVERE PAIN (6-10/10) Last Admin: 10/22/17 21:32 Dose: 2 mg Pravastatin Sodium (Pravachol) 40 mg PO DAILY@2200 [facility] Last Admin: 10/22/17 21:37 Dose: 40 mg Risperidone (Risperdal) 0.25 mg PO BID [facility] Last Admin: 10/22/17 21:37 Dose: 0.25 mg Sodium Chloride () 5 - 30 ml IV UD PRN PRN Reason: SALINE FLUSH Last Admin: 10/23/17 09:32 Dose: 10 ml Medical Necessity - Tobacco Use Smoking Status: Never smoker Assessment/Plan All Active Problems Palpitations (Acute) Abdominal pain (Acute) Atrial flutter (Acute) 67-year-old male with a history of atrial fibrillation presenting with a one-day history of worsening abdominal pain and elevated heart rate. 1. Afib with RVR Admitted with A. fib with RVR with heart rate being up to the 140s. Was started on Cardizem drip. He remained tachycardic overnight. Amiodarone drip was started on. Patient bradycardic. Heart rate in the 40s Begin in the 60s. Amiodarone drip and cardizem drip on hold cardiology on board; to have stress test today eliquis on hold. On heparin drip didnt receive metoprolol this morning because he was going for stress test. to resume metoprolol after stress test 2D echo ordered, pending. TSH was WNL 2. Generalized abdominal pain due to constipation still complains of abdominal pain. It is generalised; abdomen is soft to palpation CT abdomen showed mildly dilated intrahepatic biliary ducts and possible sludge of tiny gallstones in the gallbladder lumen and bilateral mild hydronephrosis and hydroureter with no evidence of ureteral obstruction and left renal cyst. lactic acid was slightly elevated at 3.6, but trended down. gall bladder USG was negative for cholecystitis general surgery on board; thought it was likely due to constipation as he had a large stool burden; may also have been exacerbated by relatively diminished intestinal blood flow with relative ileus. plan is to stop opiates. May need future GI outpatient workup- can follow up with GI doctor in [place] that he has seen before. may need future outpatient lap cholecystecomy. will give fleet enema, after he returns from stress test. IV ketorolac for pain. encourage ambulation 3. Lactic acidosis: resolved. Trended down from 3.6->2.6->1.7 4. Hyperlipidemia: on statin, will continue 5. Schizophrenia: continue risperdal 6. DVT prophylaxis: heparin drip 7. GI prophylaxis: PPI Code status: DNRCCA This note was generated with Array[employer] dictation software. It may contain incorrect words, spelling, and punctuation that were not noted in checking the note before signing. Code Visit Inpatient E&M: 27123 [facility] Hosp L3
[2017-10-23] MEDS: Metoprolol Tartrate 25 MG Tablet PO ×2 (11:51→21:10)
[2017-10-23] MEDS: Gabapentin 300 MG Capsule PO ×2 (11:52→16:14)
[2017-10-23] MEDS: DULoxetine Hcl 30 MG Capsule PO (11:52)
[2017-10-23] MEDS: RisperiDONE 0.25 MG Tablet PO ×2 (11:52→21:10)
--- NOTE | 2017-10-23 12:15 | NURSING ---
Heparin drip placed on hold and restarted amiodarone drip due to limited IV access and incompatibility of medications. Will reassess for possible need for midline placement once stress test results are read and it is determined if patient needs to remain on heparin drip.
--- NOTE | 2017-10-23 12:15 | STRESSREP ---
Stress Test Report Date: 10/23/2017 Procedure: Pharmacologic stress nuclear imaging study Indications: Chest pain Consent: Per the patient Procedure: The patient underwent pharmacologic (Regadenoson) evaluation with a peak heart rate of 137 beats per minute (90 predicted maximal heart rate) and a peak blood pressure of 130/88 mmHg. The baseline ECG demonstrated atrial flutter. The peak pharmacologic ECG demonstrated continued atrial flutter with no obvious ECG changes. There were no cardiac dysrhythmias pretest, during pharmacologic infusion, or recovery. There was no complaint of chest discomfort during pharmacologic infusion or recovery. The examination was discontinued secondary to completion of protocol. Impression: 1. Pharmacologic (Regadenoson) evaluation 2. Peak pharmacologic ECG with 10 unit atrial flutter with no obvious ECG changes. 3. There were no additional cardiac dysrhythmias pretest, during pharmacologic infusion, or recovery 4. Nuclear images pending Myocardial perfusion imaging study: Technique: The patient was injected with 11.5 millicuries of technetium 99m Cardiolite and subsequently rest SPECT Cardiolite nuclear imaging was obtained in the horizontal long, vertical long, and short axis views. The patient underwent pharmacologic (Regadenoson) evaluation with a peak heart rate of 137 beats per minute (90 % percent predicted maximal heart rate) and a peak blood pressure of 130/88 mmHg. The patient was injected with 31.8 millicuries of technetium 99m Cardiolite and subsequently stress SPECT Cardiolite nuclear imaging was obtained in the horizontal long, vertical long, and short axis views. A gated Cardiolite study at peak stress was obtained. Interpretation: Rest and stress SPECT Cardiolite nuclear imaging status post realignment, normalization, and attenuation correction demonstrate no active uniform tracer uptake and myocardial perfusion appearing within normal limits. There is end systolic thickening and brightening. The gated Cardiolite study demonstrates myocardial thickening and inward wall motion. The reported LVEF is 77 %. Impression: 1. Rest and stress SPECT Cardiolite nuclear imaging demonstrate relative uniform tracer uptake and myocardial perfusion appearing within normal limits. 2. The gated Cardiolite study reports an LVEF of 77 %. This note was generated with Regaaloation software. It may contain incorrect words, spelling, and punctuation that were not noted in checking the note before signing.
[2017-10-23 12:42] LABS: Partial Thromboplast Time 34.3 Seconds (24.1-36.2)
--- NOTE | 2017-10-23 13:04 | PCM.PN.CARD ---
Subjectve: Patient responded well to IV amiodarone drip, and in fact bradycardia down requiring it to be halted. Patient remains in atrial flutter with controlled ventricular response. Objective: Vital Signs Temp Pulse Resp BP Pulse Ox 97.5 F L 116 H 15 122/82 H 94 10/23/17 12:00 10/23/17 12:15 10/23/17 12:15 10/23/17 12:15 10/23/17 12:15 Oxygen Flow Rate (L/min) 1 Oxygen Delivery Method Nasal Cannula Weight: 192 lb 7.417 oz Body Mass Index (BMI) 26.8 Intake and Output for Last 24 Hours 10/21/17 10/22/17 10/23/17 23:59 23:59 23:59 Intake Total 1327.5 / 1327.5 1465.8 / 1465.8 Output Total 975 / 975 350 / 350 Balance 352.5 / 352.5 1115.8 / 1115.8 General: Awake, Alert, Oriented x 3 HEENT: PERRL, EOMI, Sclera Non Icteric Neck: Supple, Good ROM, No Lymph Node Enlargement Lungs: Clear to auscultation Cardiovascular: Regular Rhythm, Irregular Rhythm, Normal S1, Normal S2, No Murmurs, No Rubs, No Gallops Vascular: No Carotid Bruits, Normal Femoral Pulses, Normal Radial Pulses, Normal Dorsalis Pedal Pulse, Normal Posterior Tibial Pulses Abdomen: Bowel Sounds Present, Soft, Non Tender, No HSM, No Organomegaly Extremities: No Cyanosis, No Clubbing, No edema Neurological: No Focal Motor or Sensory Deficit 10/22/17 14:02: Lactic Acid Cancelled 10/22/17 15:25: Lactic Acid 3.6 H 10/22/17 20:16: PT 14.7, INR 1.2, APTT 33.9 10/22/17 20:16: Lactic Acid 2.6 H 10/23/17 01:09: Lactic Acid 1.7 10/23/17 03:42: WBC 7.9, RBC 3.91 L, Hgb 13.1, Hct 38.9 L, MCV 99.5 H, MCH 33.5 H, MCHC 33.7, RDW 11.9, RDW Differential 42.8, Plt Count 253, MPV 9.2, Immature Gran % (Auto) 0.600, Neut % (Auto) 65.1, Lymph % (Auto) 19.9, [place] % (Auto) 13.7 H, Eos % (Auto) 0.6, Baso % (Auto) 0.1, Absolute Neuts (auto) 5.2, Total Counted Not Reportable 10/23/17 03:42: Sodium 135 L, Potassium 4.2, Chloride 100, Carbon Dioxide 26.0, Anion Gap 9, BUN 13, Creatinine 0.81, Est GFR (MDRD) Af Amer 122, Est GFR (MDRD) Non-Af 101, BUN/Creatinine Ratio 16.1, Glucose 105, Calcium 8.1 L 10/23/17 03:42: APTT 147.4 H* 10/23/17 03:42: PT 15.3 H, INR 1.2 10/23/17 11:45: APTT 34.3 Rhythm: EKG: ECHO: Echocardiogram shows technically difficult study, intact LV function, RVSP of 43 mmHg. Stress Test: Stress test negative for inducible ischemia. Cardiac Cath: PCI: CT Surgery: Holter monitor: EPS: PPM: CXR: Chest CT Scan: Medical Necessity - Tobacco Use Smoking Status: Never smoker Assessment/Plan 1. Atrial flutter with rapid ventricular response: The patient presents with recurrent atrial flutter/fibrillation with rapid ventricular response unresponsive to IV Cardizem therapy. Patient was started on amiodarone drip last evening as he could not control his heart rate and his ventricular rate dropped to the 40s. His amiodarone drip was held, and he underwent a non-walking nuclear stress test this morning which was negative for inducible ischemia. His echocardiogram shows intact LV function with an EF around 65% and an RVSP of 43 mmHg. Patient underwent ultrasound of his right upper quadrant which demonstrated sludge in his gallbladder but no biliary dilatation. He is now currently resting comfortably. As the patient is not going to undergo any surgery or catheterization I think it is reasonable to start him on Eliquis adjusted for his renal function, as well as continue amiodarone 200 mg p.o. daily for heart rate control. His LFTs are normal at this time. TSH is normal. No further cardiac analysis needed at this time. Would recommend the patient undergo a EKG in 1 week's time in our office to monitor his QT corrected. If the patient does not chemically convert on his own with amiodarone assistance, I have a low threshold for DC cardioversion in 3 weeks time assuming he is able to tolerate anticoagulation therapy for that amount of time. His heart rate is well controlled with Lopressor 25 mg p.o. twice daily, continue present management. 2. Thank you very much for the opportunity to participate in the cardiac care of your patient. Code Visit Inpatient E&M: 33519 [facility] Hosp L2
[2017-10-23] MEDS: Amiodarone 200 MG Tablet PO (13:19)
--- NOTE | 2017-10-23 13:30 | NURSING ---
Enema given at this time, patient did not have a BM
[2017-10-23] MEDS: Magnesium Hydroxide 30 ML UDC PO (14:43)
[2017-10-23] MEDS: APIXABAN 5 MG TABLET PO (21:10)
[2017-10-23] MEDS: ALPRAZolam 0.25 MG Tablet PO (21:10)
[2017-10-23] MEDS: Pravastatin 40 MG Tablet PO (21:10)
[2017-10-23] MEDS: Polyethylene Glycol 3350 17 GM PACKET PO (22:25)
[2017-10-24] VITALS (9 sets, daily range): BP systolic 120–126; BP diastolic 71–75; PULSE 50–62; RESP 16; TEMP 36.5–37; O2SAT 93–99
--- NOTE | 2017-10-24 05:53 | PCM.PN.SRG ---
Patient Problems: Active and Suspected Problems Palpitations (Acute) Abdominal pain (Acute) Atrial flutter (Acute) Subjective: Pt notes his routine abdominal pain Some results with enema - Physical Exam Abdomen: Soft, Non Tender, Hypoactive Bowel Sounds Vital Signs Temp Pulse Resp BP Pulse Ox 97.7 F L 51 L 16 120/71 99 10/24/17 03:00 10/24/17 03:00 10/24/17 03:00 10/24/17 03:00 10/24/17 03:10 Oxygen Flow Rate (L/min) 1 Oxygen Delivery Method Room Air Weight: 192 lb 7.417 oz Body Mass Index (BMI) 26.8 Intake and Output for Last 24 Hours 10/22/17 10/23/17 10/24/17 23:59 23:59 23:59 Intake Total 1327.5 / 1327.5 2565.8 / 2565.8 Output Total 975 / 975 850 / 850 Balance 352.5 / 352.5 1715.8 / 1715.8 Laboratory Tests Past 24 Hrs 10/23/17 11:45 APTT 34.3 Medical Necessity - Tobacco Use Smoking Status: Never smoker Assessment/Plan All Active Problems Palpitations (Acute) Abdominal pain (Acute) Atrial flutter (Acute) Abdominal exam quite benign and nontender Agree with resuming his routine bowel regimen with miralax I suspect this is how he responded during his hospitalization in [place]. Only sludge noted on U/S Further surgical follow up can be as needed. I will sign off for now
[2017-10-24 06:09] LABS: International Normalized Ratio 1.2; Prothrombin Time (Protime)PT. 14.9 SECONDS (11.7-14.9)
[2017-10-24 06:10] LABS: Partial Thromboplast Time 33.3 Seconds (24.1-36.2)
[2017-10-24] MEDS: Dicyclomine 10 MG Capsule PO ×2 (06:26→10:11)
[2017-10-24] MEDS: Polyethylene Glycol 3350 17 GM PACKET PO (08:38)
[2017-10-24] MEDS: Gabapentin 300 MG Capsule PO (08:39)
[2017-10-24] MEDS: RisperiDONE 0.25 MG Tablet PO (09:10)
[2017-10-24] MEDS: APIXABAN 5 MG TABLET PO (09:10)
[2017-10-24] MEDS: Amiodarone 200 MG Tablet PO (09:11)
[2017-10-24] MEDS: 0.9% NaCl Peripheral Flush Adult/Peds IV (09:11)
[2017-10-24] MEDS: DULoxetine Hcl 30 MG Capsule PO (09:11)
[2017-10-24] MEDS: Metoprolol Tartrate 25 MG Tablet PO (09:11)
--- NOTE | 2017-10-24 10:28 | PCM.TXEXTCAR ---
- Diet 10/23/17 14:55 Diet: Cardiac/Low Cholesterol Is pt able to select menu?: Yes - Routine Orders/Code Status Enema Type: Fleetz Enema Frequency: Daily PRN Suppository Type: Dulcolax 10mg Suppository Frequency: Daily PRN O2 Frequency: PRN Keep PO Greater than or Equal to (%): 92 Code Status: DNRCC-A - Therapies Weight Bearing: Weight bearing as tolerated Physical Therapy: Eval and Treat Occupational Therapy: Eval and Treat - Problem/Diagnosis (1) Palpitations Status: Acute Current Visit: Yes (2) Abdominal pain Status: Acute Current Visit: Yes - Allergies/Procedures Done in Hospital Allergies/Adverse Reactions: Allergies No Known Allergies Allergy (Verified 10/22/17 09:45) Procedures: 2-D Echocardiogram, Stress Test - Type of Care/Length of Stay Estimated LOS: More Than 30 Days Type of Care Needed: Skilled Rehab Potential: Fair Prognosis: Fair - Additional Orders/Day of Discharge Additional Orders: follow up with your safety and health consultant in [place] in 1-2 weeks to follow up chronic abdominal pain. H&P will serve as current which was dated: 10/22/17 Day of Discharge: 10/24/17 - Dietary and Speech Recommendations Dietitian Recommendations/Changes: When medically appropriate, rec adv diet to cardiac. Ensure Enlive 120 mL 4x/day if intake established poor at meals. - Follow Up Care Primary Care Physician: Sayra Peterson MD [Primary Care Provider] - Please follow up with your Primary Care Physician in: one week Please Follow Up With: [facility] office for EKG Please Follow Up With: Arturo Davis MD When: 1-2 weeks Please Follow Up With: Justin Paredes MD When: 2-4 weeks
--- NOTE | 2017-10-24 10:32 | PCM.DC.SUM ---
Discharge Date and Diagnosis Date of Admission: 10/22/17 Date of Discharge: 10/24/17 - Primary Discharge Diagnosis Active and Suspected Problems Palpitations (Acute) Abdominal pain (Acute) Atrial flutter (Acute) Hospital Course and Treatment Imaging Results: Diagnostic Data Abdomen/Pelvis CT 10/22/17 09:56 IMPRESSION: Findings suggestive of atelectasis and/or scarring at the lung bases. Follow-up is recommended. Mild degree of the dilated intrahepatic biliary ducts and possible sludge or tiny gallstones in the gallbladder lumen. Mild bilateral hydronephrosis and hydroureter without evidence of ureteral obstruction. Left renal cyst. Electronically Signed: Asher Denton MD at 11:27 EDT Tel [phone], Service support , Chest X-Ray 10/22/17 10:15 IMPRESSION: Mild increased markings in the peripheral aspect of the right upper lobe and left lower lobe suggestive of linear atelectasis and/or scarring. Electronically Signed: Asher Denton MD at 10:20 EDT Tel [phone], Service support , Gallbladder Ultrasound 10/22/17 14:41 IMPRESSION: Enlarged fatty liver. Focal gallbladder sludge. No biliary dilatation. Electronically Signed: Jaydon Reid DO at 18:48 EDT Tel [phone], Service support , Laboratory Tests 10/22/17 10/22/17 10/22/17 10:06 10:06 10:06 WBC 7.2 RBC 4.52 L Hgb 14.7 Hct 44.4 MCV 98.2 H MCH 32.5 H MCHC 33.1 RDW 12.1 RDW Differential 42.9 Plt Count 287 MPV 9.1 Immature Gran % (Auto) 0.300 Neut % (Auto) 75.6 H Lymph % (Auto) 12.8 L Greenlee % (Auto) 10.6 H Eos % (Auto) 0.6 Baso % (Auto) 0.1 Absolute Neuts (auto) 5.4 Absolute Lymphs (auto) 0.92 Total Counted Not Reportable PT INR APTT Sodium 137 Potassium 4.3 Chloride 97 L Carbon Dioxide 29.0 Anion Gap 11 BUN 12 Creatinine 0.91 Estim Creat Clear Calc 82.75 Est GFR (MDRD) Af Amer 106 Est GFR (MDRD) Non-Af 88 BUN/Creatinine Ratio 13.2 Glucose 125 H Lactic Acid Calcium 9.2 Total Bilirubin 0.20 Direct Bilirubin 0.07 AST 22 ALT 23 Alkaline Phosphatase 116 Troponin I < 0.015 Total Protein 7.8 Albumin 3.5 Globulin 4.3 H Lipase 38 L TSH 2.99 Urine Color Urine Clarity Urine pH Ur Specific Topmost Urine Protein Urine Glucose (UA) Urine Ketones Urine Occult Blood Urine Nitrite Urine Bilirubin Urine Urobilinogen Ur Leukocyte Esterase Urine RBC Urine WBC Ur Squamous Epith Cells Urine Bacteria Urine Mucus 10/22/17 10/22/17 10/22/17 10:35 14:02 15:25 WBC RBC Hgb Hct MCV MCH MCHC RDW RDW Differential Plt Count MPV Immature Gran % (Auto) Neut % (Auto) Lymph % (Auto) Greenlee % (Auto) Eos % (Auto) Baso % (Auto) Absolute Neuts (auto) Absolute Lymphs (auto) Total Counted PT INR APTT Sodium Potassium Chloride Carbon Dioxide Anion Gap BUN Creatinine Estim Creat Clear Calc Est GFR (MDRD) Af Amer Est GFR (MDRD) Non-Af BUN/Creatinine Ratio Glucose Lactic Acid Cancelled 3.6 H Calcium Total Bilirubin Direct Bilirubin AST ALT Alkaline Phosphatase Troponin I Total Protein Albumin Globulin Lipase TSH Urine Color Yellow Urine Clarity Clear Urine pH 7.0 Ur Specific Topmost 1.010 Urine Protein Negative Urine Glucose (UA) Normal Urine Ketones Negative Urine Occult Blood Negative Urine Nitrite Negative Urine Bilirubin Negative Urine Urobilinogen Normal Ur Leukocyte Esterase 25 H Urine RBC 0-5 SEEN Urine WBC 0-5 SEEN Ur Squamous Epith Cells 0 SEEN Urine Bacteria RARE Urine Mucus 0 SEEN 10/22/17 10/22/17 10/23/17 20:16 20:16 01:09 WBC RBC Hgb Hct MCV MCH MCHC RDW RDW Differential Plt Count MPV Immature Gran % (Auto) Neut % (Auto) Lymph % (Auto) Greenlee % (Auto) Eos % (Auto) Baso % (Auto) Absolute Neuts (auto) Absolute Lymphs (auto) Total Counted PT 14.7 INR 1.2 APTT 33.9 Sodium Potassium Chloride Carbon Dioxide Anion Gap BUN Creatinine Estim Creat Clear Calc Est GFR (MDRD) Af Amer Est GFR (MDRD) Non-Af BUN/Creatinine Ratio Glucose Lactic Acid 2.6 H 1.7 Calcium Total Bilirubin Direct Bilirubin AST ALT Alkaline Phosphatase Troponin I Total Protein Albumin Globulin Lipase TSH Urine Color Urine Clarity Urine pH Ur Specific Topmost Urine Protein Urine Glucose (UA) Urine Ketones Urine Occult Blood Urine Nitrite Urine Bilirubin Urine Urobilinogen Ur Leukocyte Esterase Urine RBC Urine WBC Ur Squamous Epith Cells Urine Bacteria Urine Mucus 10/23/17 10/23/17 10/23/17 03:42 03:42 03:42 WBC 7.9 RBC 3.91 L Hgb 13.1 Hct 38.9 L MCV 99.5 H MCH 33.5 H MCHC 33.7 RDW 11.9 RDW Differential 42.8 Plt Count 253 MPV 9.2 Immature Gran % (Auto) 0.600 Neut % (Auto) 65.1 Lymph % (Auto) 19.9 Greenlee % (Auto) 13.7 H Eos % (Auto) 0.6 Baso % (Auto) 0.1 Absolute Neuts (auto) 5.2 Absolute Lymphs (auto) 1.58 Total Counted Not Reportable PT INR APTT 147.4 H* Sodium 135 L Potassium 4.2 Chloride 100 Carbon Dioxide 26.0 Anion Gap 9 BUN 13 Creatinine 0.81 Estim Creat Clear Calc 92.96 Est GFR (MDRD) Af Amer 122 Est GFR (MDRD) Non-Af 101 BUN/Creatinine Ratio 16.1 Glucose 105 Lactic Acid Calcium 8.1 L Total Bilirubin Direct Bilirubin AST ALT Alkaline Phosphatase Troponin I Total Protein Albumin Globulin Lipase TSH Urine Color Urine Clarity Urine pH Ur Specific Topmost Urine Protein Urine Glucose (UA) Urine Ketones Urine Occult Blood Urine Nitrite Urine Bilirubin Urine Urobilinogen Ur Leukocyte Esterase Urine RBC Urine WBC Ur Squamous Epith Cells Urine Bacteria Urine Mucus 10/23/17 10/23/17 10/24/17 03:42 11:45 05:05 WBC RBC Hgb Hct MCV MCH MCHC RDW RDW Differential Plt Count MPV Immature Gran % (Auto) Neut % (Auto) Lymph % (Auto) Greenlee % (Auto) Eos % (Auto) Baso % (Auto) Absolute Neuts (auto) Absolute Lymphs (auto) Total Counted PT 15.3 H 14.9 INR 1.2 1.2 APTT 34.3 33.3 Sodium Potassium Chloride Carbon Dioxide Anion Gap BUN Creatinine Estim Creat Clear Calc Est GFR (MDRD) Af Amer Est GFR (MDRD) Non-Af BUN/Creatinine Ratio Glucose Lactic Acid Calcium Total Bilirubin Direct Bilirubin AST ALT Alkaline Phosphatase Troponin I Total Protein Albumin Globulin Lipase TSH Urine Color Urine Clarity Urine pH Ur Specific Topmost Urine Protein Urine Glucose (UA) Urine Ketones Urine Occult Blood Urine Nitrite Urine Bilirubin Urine Urobilinogen Ur Leukocyte Esterase Urine RBC Urine WBC Ur Squamous Epith Cells Urine Bacteria Urine Mucus general surgery cardiology Operations: None Procedures: 2-D Echocardiogram, Nuclear stress test Summary of Care Provided: The patient is a 67 year old M with a history of atrial fibrillation, hyperlipidemia and schizophrenia. He was admitted from his [facility] with a complaint of abdominal pain a few days duration and also rapid heart rate of 1 day duration. He had been followed up by GI doctor for his abdominal pain and had been started on sulcrafate for that. However pain that was 1 day prior to presentation and was generalized with no aggravating or relieving factors, cramping in nature with assisted nausea. Pain was rated about 8 out of 10. His heart rate was checked in the [facility] with a complaint of palpitations and was noted to have a elevated heart rate and so was brought to the emergency room. He claims compliance with all his medications. In the ED heart rate was in the 130s-140s and CT of the abdomen and pelvis done with contrast showed increased linear markings of the lung base with areas of confluence worse on the right side and a 1.1 cm pleural-based nodular density in the right lower lobe which could be related to scarring and calcified granuloma in the anterior aspect of the right lower lobe. He had decreased attenuation of liver consistent with steatosis and mildly dilated central intrahepatic biliary ducts and questionable sludge or tiny gallstones along dependent portion of the gallbladder. There is also mild bilateral hydronephrosis and hydroureter without evidence of obstruction. Troponins were initially negative. He was admitted to be managed for A. fib with RVR and abdominal pain. Cardiology was consulted he was started on Cardizem drip. There is a suspicion for possible mesenteric ischemia with abdominal pain. Initial lactic acid was 3.6 in general surgery was consulted. However general surgery thought was more likely due to constipation and lactic acid also trended down. Gallbladder ultrasound was negative for any evidence of acute cholecystitis. Abdominal pain improved with administration of enema to help with bowel movements. Patient's heart rate was not controlled on IV Cardizem and IV amiodarone drip had to be added on. Patient however subsequently became hypotensive and so both amiodarone and Cardizem were held. He underwent a stress test which was negative. He was started on p.o. amiodarone 200 mg daily and also metoprolol 25 mg twice daily. He became bradycardic with heart rate going down to the 30s and 40s. Metoprolol was therefore cut to 12.5 mg twice daily. Patient remained stable and was discharged home on 10/24/2017 on amiodarone 200mg daily and metoprolol 12.5mg bid. He was on eliquis which was continued. He is to follow up with his PCP, director of outpatient services and general surgery. To have follow up CT scan on outpatient basis after follow up with PCP to follow up 1.1cm pleural based nodular density in right lower lobe. [] Discharge Diet: 2000 mg Sodium Diet Discharge Activity: Return to Normal Activity Weight Bearing Status: Weight bearing as tolerated Call your doctor if you observe: Shortness of breath, Dizziness, Increased palpitations (irregular heartbeat), - - worsening abdominal pain Home Medications: Medications to take at Discharge ALPRAZolam [Xanax] 0.25 mg PO QHS 10/22/17 Apixaban [Eliquis] 5 mg PO BID 10/22/17 Cholecalciferol (Vitamin D3) [Vitamin D3] 1,000 unit PO DAILY 10/22/17 Dicyclomine HCl 10 mg PO 4X/DAY 10/22/17 Duloxetine HCl 30 mg PO DAILY 10/22/17 Esomeprazole Magnesium 40 mg PO BID 10/22/17 Fentanyl 1 each TD QODAY MDD 75 10/22/17 Gabapentin [Neurontin] 300 mg PO BIDCM 10/22/17 Polyethylene Glycol 3350 [Miralax] 17 gm PO BID 10/22/17 Pravastatin [Pravachol] 40 mg PO DAILY 10/22/17 Risperidone [Risperdal] 0.25 mg PO BID 10/22/17 Sucralfate 1 gm PO BID 10/22/17 Amiodarone HCl [Cordarone] 200 mg PO DAILY #30 tab 10/24/17 Metoprolol Tartrate 12.5 mg PO BID #30 tab 10/24/17 Sennosides/Docusate Sodium [Sennosides-Docusate Sodium Tab] 1 ea PO DAILY PRN PRN #30 tab 10/24/17 Following Prescrptions Were Given to Patient: Amiodarone HCl [Cordarone] 200 mg PO DAILY #30 tab Sennosides/Docusate Sodium [Sennosides-Docusate Sodium Tab] 1 ea PO DAILY PRN PRN #30 tab PRN Reason: Constipation Metoprolol Tartrate 12.5 mg PO BID #30 tab Primary Care Physician: Sayra Peterson MD [Primary Care Provider] - Please follow up with your Primary Care Physician in: one week Please Follow Up With: [facility] office for EKG Please Follow Up With: Arturo Davis MD When: 1-2 weeks Please Follow Up With: Justin Paredes MD When: 2-4 weeks Disposition: Custodial facility Minutes spent on discharge:: 45 Patient Condition:: Stable Medical Necessity - Tobacco Use Smoking Status: Never smoker Meaningful Use Info Meaningful Use Diagnoses (Choose all that apply): None applicable Code Visit Inpatient E&M: 31300 Disch Hosp
--- NOTE | 2017-10-24 10:42 | NURSING ---
Called report to VENTURA Crum at [facility] at this time. pipeline superintendent division time for patient 1200 today.
--- NOTE | 2017-10-24 10:49 | CASEMGMT ---
Patient is ready for d/c. GILBERTO called Ina earlier in day and let her know he will likely be returning today. Faxed orders to [facility]. GILBERTO called [facility] and their wheelchair vans were booked all day. GILBERTO called [facility] and arranged for patient to ge picked up at noon via wc van as this was the only time they had all day. GILBERTO notified patient, his brother, RN, juvenile correctional officer, and Letty nice [facility]. Plan: d/c back to [facility] under intermediate level of care. [facility] transported him via [facility]c van. Rafaela JJ MSW
--- NOTE | 2017-10-24 12:02 | PCM.PN.CARD ---
Subjectve: Patient feeling much better today. Converted to normal sinus rhythm. No further abdominal pain. Able to lay his legs flat. Ultrasound demonstrated enlarged fatty liver, and gallbladder sludge but no overt stones. Objective: Vital Signs Temp Pulse Resp BP Pulse Ox 98.6 F 55 L 16 126/74 H 97 10/24/17 09:00 10/24/17 11:14 10/24/17 09:00 10/24/17 09:11 10/24/17 09:00 Oxygen Flow Rate (L/min) 1 Oxygen Delivery Method Room Air Weight: 192 lb 7.417 oz Body Mass Index (BMI) 26.8 Intake and Output for Last 24 Hours 10/22/17 10/23/17 10/24/17 23:59 23:59 23:59 Intake Total 1327.5 / 1327.5 2565.8 / 2565.8 60 / 60 Output Total 975 / 975 850 / 850 250 / 250 Balance 352.5 / 352.5 1715.8 / 1715.8 -190 / -190 General: Awake, Alert, Oriented x 3 HEENT: PERRL, EOMI, Sclera Non Icteric Neck: Supple, Good ROM, No Lymph Node Enlargement Lungs: Clear to auscultation Cardiovascular: Regular Rhythm, Normal S1, Normal S2, No Murmurs, No Rubs, No Gallops Vascular: No Carotid Bruits, Normal Femoral Pulses, Normal Radial Pulses, Normal Dorsalis Pedal Pulse, Normal Posterior Tibial Pulses Abdomen: Bowel Sounds Present, Soft, Non Tender, No HSM, No Organomegaly Extremities: No Cyanosis, No Clubbing, No edema Neurological: No Focal Motor or Sensory Deficit 10/23/17 11:45: APTT 34.3 10/24/17 05:05: PT 14.9, INR 1.2, APTT 33.3 Rhythm: EKG: ECHO: Stress Test: Cardiac Cath: PCI: CT Surgery: Holter monitor: EPS: PPM: CXR: Chest CT Scan: Medical Necessity - Tobacco Use Smoking Status: Never smoker Assessment/Plan 1. Atrial flutter with rapid ventricular response: The patient presents with recurrent atrial flutter/fibrillation with rapid ventricular response unresponsive to IV Cardizem therapy. Patient was started on amiodarone drip last evening as he could not control his heart rate and his ventricular rate dropped to the 40s. His amiodarone drip was held, and he underwent a non-walking nuclear stress test which was negative for inducible ischemia. His echocardiogram shows intact LV function with an EF around 65% and an RVSP of 43 mmHg. Patient underwent ultrasound of his right upper quadrant which demonstrated sludge in his gallbladder but no biliary dilatation. He is now currently resting comfortably. As the patient is not going to undergo any surgery or catheterization I think it is reasonable to start him on Eliquis adjusted for his renal function, as well as continue amiodarone 200 mg p.o. daily for heart rate control. His LFTs are normal at this time. TSH is normal. No further cardiac analysis needed at this time. Would recommend the patient undergo a EKG in 1 week's time in our office to monitor his QT corrected. Patient chemically converted last evening to normal sinus rhythm. He had episodes of bradycardia and would recommend decreasing her his Lopressor to 12.5 mg p.o. twice daily. He will continue low-dose amiodarone 200 mg a day. 2. Thank you very much for the opportunity to participate in the cardiac care of your patient. Patient may be discharged home. Code Visit Inpatient E&M: 72145 Subs Hosp L2
== END 2017-10-24 14:30 | disposition intermediate care facility (04) | DRG 309 ==
LOC: ED 11:23 → PCU 12:30
PROVIDERS: Emergency Medicine; Internal Medicine Cardiovascular Disease; Admitting Provider Student in an Organized Health Care Education/Training Program; Emergency Provider Emergency Medicine; Family Provider Internal Medicine Geriatric Medicine; PCP Internal Medicine Geriatric Medicine; Visit Provider Student in an Organized Health Care Education/Training Program
DX: I48.92 Unspecified atrial flutter (principal); E87.2 Acidosis; I48.91 Unspecified atrial fibrillation; F20.9 Schizophrenia, unspecified; E78.5 Hyperlipidemia, unspecified; K59.00 Constipation, unspecified
CPT/HCPCS: 36415; 71045; 74177; 76705; 78452; 80048; 80076; 81001; 83605; 83690; 84443; 84484; 85025; 85610; 85730; 93005; 93017; 93306; 99285; A9500; J7030; J7040; Q9957; Q9967; A4216; C8929; J2405; J2785